=== PATIENT | male | born 1955 | race Caucasian/White ===

== ENCOUNTER 2017-01-16 08:46 | Day surgery (SDC) | payer MEDICAID | END 2017-01-16 10:45 | disposition home or self-care (01) | LOC: LB.SDS 08:46 | PROVIDERS: ATTEND Podiatrist Foot & Ankle Surgery | DX: M20.41 Other hammer toe(s) (acquired), right foot (principal); M20.42 Other hammer toe(s) (acquired), left foot; M24.575 Contracture, left foot; M21.6X2 Other acquired deformities of left foot; I10 Essential (primary) hypertension; E11.621 Type 2 diabetes mellitus with foot ulcer; L97.421 Non-pressure chronic ulcer of left heel and midfoot limited to breakdown of skin; Z88.0 Allergy status to penicillin; Z79.899 Other long term (current) drug therapy ==